=== PATIENT | female | born 1970 | race Native Hawaiian/Other Pacific Islander ===

== ENCOUNTER 2019-01-09 22:19 | Emergency (ER) | payer MEDICAID ==
--- NOTE | 2019-01-09 22:24 | ED Physician Documentation ---
PD HPI LOWER EXT INJURY - Stated complaint Stated Complaint: RT TOE IRRITATION - Chief complaint Chief Complaint: Wound - History obtained from History obtained from: Patient, Friend - History of Present Illness PD HPI LOW EXT INJURY LOCATION: Right, Toe Type of injury: Other (Unknown) Timing - duration: Days (3) Timing - details: Still present Associated symptoms: Swelling, Discolored Recently seen: Not recently seen - Additional information Additional information: This is a 48-year-old woman who presents with a friend [place] [facility]. She arrived here on November 14 and left all of her chronic medications for her diabetes, high blood pressure and high cholesterol at her home. She noticed that the great toe second toe and third toe on the right foot were blistered about 3 days ago and is just getting worse. She has a diabetic neuropathy and so she cannot feel anything and has no pain. She does not know how they got blistered initially. She has not been checking her blood sugars. Today around noon she felt chilled and so took some Tylenol. She is been nauseous but no vomiting. She has chronic lightheadedness but has not passed out. Denies shortness of breath, cough or chest pain. Review of Systems Constitutional: reports: Chills. denies: Fever Eyes: denies: Loss of vision Nose: denies: Congestion Throat: denies: Sore throat Cardiac: denies: Chest pain / pressure, Palpitations Respiratory: denies: Dyspnea, Cough GI: reports: Nausea. denies: Abdominal Pain, Vomiting, Diarrhea : denies: Dysuria Skin: reports: Rash, Lesions, Abrasion (s) (Healing abrasions on her knees bilaterally.) Musculoskeletal: denies: Extremity pain, Joint swelling Neurologic: reports: Other (Lightheaded). denies: Generalized weakness, Syncope Endocrine: reports: Other (Patient is diabetic and has not been taking her metformin.) PD PAST MEDICAL HISTORY - Past Medical History Cardiovascular: Hypertension, High cholesterol Endocrine/Autoimmune: Type 2 diabetes - Present Medications Home Medications: Ambulatory Orders Medication Instructions Recorded Confirmed Ciprofloxacin HCl [Cipro] 500 mg PO BID #20 tablet 01/10/19 RX: metFORMIN [Glucophage] 500 mg PO BIDWM #30 tablet 01/10/19 - Allergies Allergies/Adverse Reactions: Allergies Allergy/AdvReac Type Severity Reaction Status Date / Time Penicillins Allergy Rash Verified 01/09/19 22:27 chlorpheniramine AdvReac Unknown Verified 01/09/19 22:27 [From Actifed Cold-Allergy] phenylephrine AdvReac Unknown Verified 01/09/19 22:27 [From Actifed Cold-Allergy] pseudoephedrine AdvReac Unknown Verified 01/09/19 22:27 [From Actifed Cold-Allergy] triprolidine AdvReac Unknown Verified 01/09/19 22:27 [From Actifed Cold-Allergy] PD ED PE NORMAL - Vitals Vital signs reviewed: Yes - General General: Alert and oriented X 3, No acute distress, Well developed/nourished - HEENT HEENT: Atraumatic, PERRL, Moist mucous membranes - Cardiac Cardiac: RRR, No murmur, No rub, Strong equal pulses - Respiratory Respiratory: No respiratory distress, Clear bilaterally - Abdomen Abdomen: Normal bowel sounds - Derm Derm: Normal color, Other (There are thick healed scabs on her knees bilaterally from prior falls. The tops of the first second and third toes of the right foot are blistered with the deepest ulceration appearing to be on the top of the second toe. There is some erythema and edema of the foot at the base of these toes. There is a red streak up the dorsal foot and ankle onto the lower leg. No wounds are noted on the soles of her feet. She has palpable dorsalis pedis pulses bilaterally. She cannot feel me touching her lower extremities.) - Extremities Extremities: Other (Wound as noted above on the toes) - Neuro Neuro: Alert and oriented X 3 - Psych Psych: Normal mood, Normal affect Results - Vitals Vitals: Vital Signs - 24 hr 01/09/19 01/10/19 01/10/19 22:22 00:30 02:59 Temperature 36.2 C L 37.2 C 36.3 C L Heart Rate 109 H 105 H 103 H Respiratory 16 14 18 Rate Blood Pressure 110/75 141/75 H 176/84 H O2 Saturation 98 91 L 99 Oxygen O2 Source Room air - Labs Labs: Microbiology 01/10/19 02:07 Wound Culture - Preliminary Toe - Right Big Laboratory Tests 01/09/19 01/09/19 01/09/19 22:33 22:55 22:55 WBC 9.7 RBC 5.28 Hgb 15.3 Hct 47.7 H MCV 90.3 MCH 29.0 MCHC 32.1 RDW 13.5 Plt Count 309 MPV 10.1 Neut # (Auto) 6.1 Lymph # (Auto) 2.8 [place] # (Auto) 0.6 Eos # (Auto) 0.2 Baso # (Auto) 0.0 Absolute Nucleated RBC 0.00 Nucleated RBC % 0.0 Sodium 133 L Potassium 4.1 Chloride 94 L Carbon Dioxide 27 Anion Gap 12.0 BUN 17 Creatinine 1.2 H Estimated GFR (MDRD) 48 L Glucose 334 H POC Whole Bld Glucose 378 H Lactic Acid Calcium 9.3 Urine Color Urine Clarity Urine pH Ur Specific [place] Urine Protein Urine Glucose (UA) Urine Ketones Urine Occult Blood Urine Nitrite Urine Bilirubin Urine Urobilinogen Ur Leukocyte Esterase Urine RBC Urine WBC Ur Squamous Epith Cells Urine Bacteria Ur Microscopic Review Urine Culture Comments Serum Ketones NEGATIVE 01/09/19 01/09/19 01/10/19 22:55 23:00 02:45 WBC RBC Hgb Hct MCV MCH MCHC RDW Plt Count MPV Neut # (Auto) Lymph # (Auto) [place] # (Auto) Eos # (Auto) Baso # (Auto) Absolute Nucleated RBC Nucleated RBC % Sodium Potassium Chloride Carbon Dioxide Anion Gap BUN Creatinine Estimated GFR (MDRD) Glucose POC Whole Bld Glucose 326 H Lactic Acid 1.7 Calcium Urine Color YELLOW Urine Clarity SL. CLOUDY Urine pH 5.5 Ur Specific [place] 1.025 Urine Protein >=300 H Urine Glucose (UA) >=1000 H Urine Ketones NEGATIVE Urine Occult Blood LARGE H Urine Nitrite NEGATIVE Urine Bilirubin NEGATIVE Urine Urobilinogen 0.2 (NORMAL) Ur Leukocyte Esterase NEGATIVE Urine RBC 11-25 H Urine WBC 4-5 Ur Squamous Epith Cells FEW Squamous Urine Bacteria Many H Ur Microscopic Review INDICATED Urine Culture Comments INDICATED Serum Ketones Procedures - General procedure General procedure: Wound debridement: The first and second toes on the right foot were cleansed with Hibiclens. The skin overlying the ulcerations was debrided with pickups and sharp iris scissors. Wound was then cleansed and antibiotic ointment applied and a dressing. PD MEDICAL DECISION MAKING - ED course Complexity details: d/w patient ED course: Patient's blood sugar was elevated over 300 I did give her 4 units of insulin subcu which did not drop the blood Sugar dramatically. Debrided the blisters on her foot. Her labs indicate she is not in DKA and has a normal lactic. She was given Cipro IV. She is placed on Cipro orally. I did give her a refill of her metformin as a temporary measure until she can get into a primary care provider. Also put in a consult for the wound care clinic as she is at high risk with a diabetic foot ulcer. Departure - Departure Disposition: 01 Home, Self Care Clinical Impression: Diabetic foot infection Condition: Good Instructions: ED Staph Infec Abx Tx Only Follow-Up: [facility] [Provider Group] Prescriptions: Ciprofloxacin HCl [Cipro] 500 mg PO BID #20 tablet RX: metFORMIN [Glucophage] 500 mg PO BIDWM #30 tablet Comments: I have placed a request for an evaluation at the wound care clinic. Take the antibiotic as prescribed twice a day. Of also given you the metformin prescription but you need to establish with a primary care provider as soon as possible for further refills on your chronic medications. You should remove the bandage from the wound daily and wash with mild soap and water, apply antibiotic ointment and reapply a bandage until further instructed by wound care. Return if you have vomiting, fever or the wound is worsening. Discharge Date/Time: 01/10/19 03:02
[2019-01-09] MEDS ORDERED: BACITRACIN OINT TOP STA (22:44)
[2019-01-09] MEDS ORDERED: SODIUM CHLORIDE 0.9% 1,000 ML IV ONE (22:44)
[2019-01-09] MEDS ORDERED: CIPROFLOXACIN 400 MG/200 ML 200 ML IV ONE (22:45)
[2019-01-09 23:04] LABS: BASOPHILS % (AUTO) 0.4 %; EOSINOPHILS # (AUTO) 0.2 10^3/uL (0.0-0.7); EOSINOPHILS % (AUTO) 1.5 %; HGB - HEMOGLOBIN 15.3 g/dL (12.0-16.0); LYMPHOCYTES # (AUTO) 2.8 10^3/uL (1.5-3.5); LYMPHOCYTES % (AUTO) 28.5 %; MEAN CORPUSCULAR HGB CONC 32.1 g/dL (32.0-36.0); MEAN CORPUSCULAR VOLUME 90.3 fL (81.0-99.0); MEAN PLATELET VOLUME 10.1 fL (7.9-10.8); MONOCYTES # (AUTO) 0.6 10^3/uL (0.0-1.0); MONOCYTES % (AUTO) 6.2 %; NEUTROPHILS # (AUTO) 6.1 10^3/uL (1.5-6.6); NEUTROPHILS % (AUTO) 63.2 %; PLT - PLATELET COUNT 309 10^3/uL (130-450); RED BLOOD COUNT 5.28 10^6/uL (4.20-5.40); RED CELL DISTRIBUTION WIDTH 13.5 % (12.0-15.0); WHITE BLOOD COUNT 9.7 x10^3/uL (4.8-10.8)
[2019-01-09 23:10] LABS: KETONES, SERUM (ACETEST) NEGATIVE (NEGATIVE)
[2019-01-09 23:15] LABS: BUN - BLOOD UREA NITROGEN 17 mg/dL (6-20); CALCIUM 9.3 mg/dL (8.5-10.3); CARBON DIOXIDE - CO2 27 mmol/L (21-32); CHLORIDE 94 mmol/L (101-111); CREATININE 1.2 mg/dL (0.4-1.0); GFR - MDRD 48 (>89); GLUCOSE 334 mg/dL (70-100); SODIUM 133 mmol/L (135-145)
[2019-01-09 23:44] LABS: BILIRUBIN,URINE NEGATIVE (NEGATIVE); GLUCOSE, URINE (UA) >=1000 mg/dL (NEGATIVE); KETONES,URINE (UA) NEGATIVE (NEGATIVE); LEUKOCYTE ESTERASE, URINE NEGATIVE (NEGATIVE); NITRITE,URINE NEGATIVE (NEGATIVE); OCCULT BLOOD,URINE LARGE (NEGATIVE); PH,URINE 5.5 PH (5.0-7.5); PROTEIN,URINE >=300 mg/dL (NEGATIVE); UROBILINOGEN,URINE 0.2 (NORMAL) E.U./dL (NORMAL)
[2019-01-09 23:45] LABS: CLARITY,URINE SL. CLOUDY (CLEAR)
[2019-01-09 23:55] LABS: BACTERIA,URINE Many /HPF (None Seen); SQUAMOUS EPITHELIAL CELL,UR FEW Squamous (<= Few)
[2019-01-10] MEDS ORDERED: INSULIN REGULAR HUMAN 100 UNIT/1 ML 10 ML MDV SUBQ STA (02:03)
[2019-01-10 03:00] VITALS: BP 176/84
== END 2019-01-10 03:02 | disposition home or self-care (01) ==
LOC: ED 22:19
DX: E11.622 Type 2 diabetes mellitus with other skin ulcer (principal); L97.519 Non-pressure chronic ulcer of other part of right foot with unspecified severity; L08.9 Local infection of the skin and subcutaneous tissue, unspecified; E11.65 Type 2 diabetes mellitus with hyperglycemia; E11.40 Type 2 diabetes mellitus with diabetic neuropathy, unspecified; Z79.84 Long term (current) use of oral hypoglycemic drugs; I10 Essential (primary) hypertension; E78.00 Pure hypercholesterolemia, unspecified; T38.3X6A Underdosing of insulin and oral hypoglycemic [antidiabetic] drugs, initial encounter; Z91.138 Patient's unintentional underdosing of medication regimen for other reason
CPT/HCPCS: 36415; 80048; 81001; 82009; 83605; 85025; 87040; 87070; 87077; 87086; 87181; 87205; 96365; 96366; 99284; A9270; J1815; 11000; 11100; 81003

== ENCOUNTER 2019-03-15 08:00 | Outpatient (CLI) | payer MEDICAID | END 2019-03-15 23:59 | disposition home or self-care (01) | LOC: LAB.R 08:00 | PROVIDERS: ATTEND Registered Nurse | DX: E11.621 Type 2 diabetes mellitus with foot ulcer (principal) | CPT/HCPCS: 87070; 87075; 87147; 87186; 87205 ==